=== PATIENT | male | born 1975 | race Caucasian/White ===

== ENCOUNTER 2018-04-25 12:53 | Emergency (ER) | payer OTHER ==
[~2018-04-25] VITALS: Ht 177.8 cm; Wt 97.5 kg
[~2018-04-25 12:53] MED LIST: DOCU-131 PO; HYDR-3653 PO; OXYC1TAB7 PO
[2018-04-25 12:56] VITALS: BP 130/93
[2018-04-25] MEDS ORDERED: IBUPROFEN 800 MG TABLET ONE (14:09)
== END 2018-04-25 14:29 | disposition home or self-care (01) ==
LOC: ED 14:10
DX: S46.012A Strain of muscle(s) and tendon(s) of the rotator cuff of left shoulder, initial encounter (principal); X58.XXXA Exposure to other specified factors, initial encounter; Y93.89 Activity, other specified; Y92.89 Other specified places as the place of occurrence of the external cause; Y99.8 Other external cause status
CPT/HCPCS: 99284

== ENCOUNTER 2019-01-08 10:52 | Emergency (ER) | payer OTHER ==
[~2019-01-08] VITALS: Ht 177.8 cm; Wt 97.1 kg
[2019-01-08 12:36] LABS: BASOPHILS # (AUTO) 0.03 x10^3/uL (0-0.1); BASOPHILS % (AUTO) 0 % (0-1); EOSINOPHILS % (AUTO) 1 % (1-7); LYMPHOCYTES # (AUTO) 2.49 x10^3/uL (1-3.4); LYMPHOCYTES % (AUTO) 18 % (22-44); MD NO; MEAN CORPUSCULAR HEMOGLOBIN 30.3 pg (27.5-34.5); MEAN CORPUSCULAR HGB CONC 33.3 g/dL (33.2-36.2); MEAN CORPUSCULAR VOLUME 90.9 fL (81-97); MEAN PLATELET VOLUME 8.6 fL (7.4-10.4); MONOCYTES % (AUTO) 8 % (2-9); NEUTROPHILS # (AUTO) 10.38 x10^3/uL (1.8-6.8); NEUTROPHILS % (AUTO) 73 % (42-75); PLATELET COUNT 301 x10^3/uL (130-400); RED BLOOD COUNT 5.66 x10^6/uL (4.38-5.82); RED CELL DISTRIBUTION WIDTH 12.9 % (9.4-14.8)
[2019-01-08 13:12] LABS: ALBUMIN 4.2 g/dL (3.4-5.0); ANION GAP 4 mmol/L (5-15); CALCIUM 9.2 mg/dL (8.5-10.1); CHLORIDE 105 mmol/L (98-107)
[2019-01-08 13:14] LABS: CREATININE 1.13 mg/dL (0.7-1.3)
[2019-01-08] MEDS ORDERED: MELO15TA24 PO (13:49)
[2019-01-08] MEDS ORDERED: KETOROLAC 30 MG/1 ML ONE ×2 (13:57→16:07)
[2019-01-08] MEDS ORDERED: KETOROLAC 30 MG/1 ML IVPush ONE ×2 (14:00→16:30)
[2019-01-08] MEDS ORDERED: KETOROLAC 30 MG/1 ML IM ONE (14:00)
--- NOTE | 2019-01-08 14:01 | NUR ---
PATIENT MEDICATED WITH TORADOL.
[2019-01-08 14:12] LABS: CULTURE INDICATED? YES; MICROSCOPIC INDICATED
--- NOTE | 2019-01-08 15:16 | NUR ---
PT RPTS THAT PAIN IMPROVED TO ABOUT A 10/29 BUT IS NOW "CREAPING BACK UP" PAIN NOW 02/28 DR. FLORES NOTIFIED
[2019-01-08 16:14] VITALS: BP 113/78
--- NOTE | 2019-01-08 16:16 | NUR ---
Patient/Caregiver given discharge instructions and they have confirmed that they understand the instructions. Patient ambulatory with steady gait.
== END 2019-01-08 16:30 | disposition home or self-care (01) ==
LOC: ED 16:05
DX: N13.2 Hydronephrosis with renal and ureteral calculous obstruction (principal); F17.200 Nicotine dependence, unspecified, uncomplicated
CPT/HCPCS: 36415; 74018; 74176; 76770; 80048; 81001; 82040; 85025; 87086; 96374; 96376; 99284; J1885

== ENCOUNTER 2019-01-14 15:45 | Day surgery (SDC) | payer OTHER ==
[~2019-01-14] VITALS: Ht 177.8 cm; Wt 96.5 kg
[~2019-01-14 15:45] MED LIST changes: +MELO15TA24 PO
[2019-01-14] MEDS ORDERED: FENTANYL PF 250 MCG/5ML ONE (15:49)
[2019-01-14] MEDS ORDERED: MIDAZOLAM 1 MG/ML, 2ML ONE (15:49)
[2019-01-14] MEDS ORDERED: CEFAZOLIN 1,000 MG ONE (15:52)
[2019-01-14] MEDS ORDERED: NEOSTIGMINE 1 MG/ML, 10ML ONE (15:52)
[2019-01-14] MEDS ORDERED: PROPOFOL 10 MG/ML, 20ML ONE (15:52)
[2019-01-14 16:08] VITALS: BP 120/79
[2019-01-14] MEDS ORDERED: LACTATED RINGERS 1,000 ML IV SCH (16:20)
[2019-01-14] MEDS ORDERED: HYDR-3240 PO (16:25)
[2019-01-14] MEDS ORDERED: KETO10TA PO (16:25)
[2019-01-14] MEDS ORDERED: ROCURONIUM 10MG/ML,5ML ONE (16:53)
[2019-01-14] MEDS ORDERED: ONDANSETRON ODT 8 MG PO PRN (17:00)
[2019-01-14] MEDS ORDERED: MORPHINE SULFATE 4 MG/ML, 1ML IVPush PRN (17:00)
[2019-01-14] MEDS ORDERED: ACETAMINOPHEN 325 MG TABLET PO PRN (17:00)
[2019-01-14] MEDS ORDERED: LABETALOL 5MG/ML, 20ML IV PRN (17:00)
[2019-01-14] MEDS ORDERED: MEPERIDINE/PF 25MG/0.5ML IVPush PRN (17:00)
[2019-01-14] MEDS ORDERED: PROMETHAZINE 12.5 MG SUPP PR PRN (17:00)
[2019-01-14] MEDS ORDERED: PROMETHAZINE 25 MG/ML, 1ML IV PRN (17:00)
[2019-01-14] MEDS ORDERED: hydrALAzine 20 MG/ML, 1ML IV PRN (17:00)
[2019-01-14] MEDS ORDERED: HYDROmorphone 2 MG/ML, 1ML IVPush PRN (17:00)
[2019-01-14] MEDS ORDERED: OXYcodone 5 MG/5 ML ORAL.SOL UDC PO PRN (17:00)
[2019-01-14] MEDS ORDERED: ONDANSETRON 2MG/ML, 2ML IV PRN (17:00)
[2019-01-14] MEDS ORDERED: PROMETHAZINE 25 MG SUPP PR PRN (17:00)
[2019-01-14] MEDS ORDERED: PROMETHAZINE 25 MG/ML, 1ML IM PRN ×2 (17:00)
[2019-01-14] MEDS ORDERED: GLYCOPYRROLATE 0.2MG/1ML, 5ML ONE (17:07)
[2019-01-14] MEDS ORDERED: KETOROLAC 30 MG/1 ML ONE (17:13)
[2019-01-14] MEDS ORDERED: FENTANYL PF 100 MCG/2ML ONE (19:02)
[2019-01-14] MEDS ORDERED: OXYcodone 5 MG/5 ML ORAL.SOL UDC ONE (19:02)
[2019-01-14] MEDS: FENTANYL PF 100 MCG/2ML IV PRN ×2 (19:04→19:14)
[2019-01-14] MEDS ORDERED: HYDR-3237 PO (19:58)
[2019-01-14 20:20] VITALS: BP 100/61
== END 2019-01-14 22:10 | disposition home or self-care (01) ==
LOC: OR 15:45 → 4NOR 19:54 → OR 22:10
PROVIDERS: ATTEND Urology
DX: N13.2 Hydronephrosis with renal and ureteral calculous obstruction (principal); F17.210 Nicotine dependence, cigarettes, uncomplicated; Z72.89 Other problems related to lifestyle; Z79.899 Other long term (current) drug therapy; Z87.442 Personal history of urinary calculi
CPT/HCPCS: 52353; 74018; 76000; C1758; C1769; J0690; J1885; J2250; J2704; J2710; J3010; J7120; G0378